=== PATIENT | female | born 1990 | race Caucasian/White ===

== ENCOUNTER 2022-05-19 13:43 | Inpatient (IN) | payer OTHER ==
--- NOTE | 2022-05-19 15:15 | P.HPOB ---
History of Present Illness H&P Date: 05/19/22 Chief Complaint: My water broke at 1:30 this afternoon This is a 31-year-old female 1 para 0 EDC 05/24/2022 at 39-3/7 weeks' gestation. Patient states her water broke at home, spontaneously, clear fluid, at 1:30 PM. She is having mild irregular uterine contractions. Fetus been active throughout the . history significant for blood type O+, rubella status nonimmune. Hepatitis B surface antigen, Pap smear, gonorrhea and chlamydia cultures, HIV testing, hepatitis B surface antigen, group B strep cultures all negative. One- hour Glucola 142, three-hour GTT within normal limits. Past medical history is significant for maternal obesity, dysmenorrhea, and dyspareunia. Past surgical history is negative. Current medications vitamins daily, baby aspirin daily, Zofran as needed. ALLERGIES none known. Family history significant for squamous cell carcinoma, bladder cancer, lung cancer, prostate cancer, blood clots. Social history patient is , 's name is Gio. 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 She denies alcohol tobacco or drug use. On exam patient is 5 foot, 230 pounds, vital signs are stable and she is afebrile. The general physical exam is within normal limits. Cervix is 3 cm dilated, 80% effaced, vertex presentation, -2 station, obviously ruptured membranes, clear fluid. heart rate is consistent with reactive NST. Impression: 39-3/7 weeks intrauterine , spontaneous amniorrhexis, all signs otherwise reassuring. Plan: Maternal and surveillance. Consider oxytocin pending progress. Analgesic options of been reviewed with the patient. Anticipate normal spontaneous vaginal delivery. Review of Systems Constitutional: Reports as per HPI Exam See dictation under HPI please Assessment and Plan Assessment: 39-3/7 weeks intrauterine , spontaneous amniorrhexis. All signs reassuring. Negative group strep cultures noted. Plan: Close maternal and surveillance. Consider oxytocin augmentation. Analgesic options reviewed. Anticipate normal spontaneous vaginal delivery. Time with Patient: Less than 30
[2022-05-19] MEDS: LACTATED RINGERS 1,000 ML IV SCH ×3 (15:30→17:36)
[2022-05-19 16:18] LABS: Basophils % (A) 0 %; Eosinophils # (A) 0.1 k/uL (0-0.7); Eosinophils % (A) 1 %; HCT 38.8 % (34.0-46.0); HGB 12.9 gm/dL (11.4-16.0); Lymphocytes # (A) 1.5 k/uL (1.0-4.8); Lymphocytes % (A) 13 %; MCH 28.4 pg (25.0-35.0); MCHC 33.1 g/dL (31.0-37.0); MCV 85.7 fL (80.0-100.0); Mean Platelet Volume 9.8; Monocytes # (A) 0.9 k/uL (0-1.0); Monocytes % (A) 7 %; Neutrophils # (A) 9.2 k/uL (1.3-7.7); Neutrophils % (A) 77 %; Platelet Count 220 k/uL (150-450); RBC 4.53 m/uL (3.80-5.40); RDW 13.8 % (11.5-15.5)
[2022-05-19] MEDS ORDERED: METHYLERGONOVINE 0.2 MG/ML 1 ML AMP IM PRN (16:20)
[2022-05-19] MEDS ORDERED: miSOPROStoL 200 MCG TAB PO PRN (16:20)
[2022-05-19] MEDS ORDERED: LIDOCAINE 0.5% (PF) 5 MG/ML (50 ML SDV) SQ PRN (16:20)
[2022-05-19] MEDS ORDERED: TERBUTALINE 1 MG/ML VIAL SQ PRN (16:20)
[2022-05-19] MEDS ORDERED: CARBOPROST TROMETHAMINE 250 MCG/ML 1 ML AMP IM PRN (16:20)
[2022-05-19] MEDS ORDERED: TRANEXAMIC ACID IN NACL,ISO-OS 1,000 MG in EMPTY BAG 1 BAG IV PRN (16:20)
[2022-05-19] MEDS ORDERED: OXYTOCIN 10 UNIT/ML 1 ML VIAL IM PRN (16:20)
[2022-05-19 16:32] LABS: ALT 13 U/L (4-34); AST 19 U/L (14-36); African American GFR (CKD) >90 (>60 ml/min/1.73 sqM); Blood Urea Nitrogen 6 mg/dL (7-17); LDH 178 U/L (120-246); Non-African American GFR(CKD) >90 (>60 ml/min/1.73 sqM); Uric Acid 4.3 mg/dL (3.7-7.4)
[2022-05-19] MEDS ORDERED: ROPIVACAINE 5 MG/ML 20 ML AMPULE ONE (16:32)
[2022-05-19] MEDS ORDERED: ePHEDrine 50 MG/ML 1 ML VIAL ONE (16:32)
[2022-05-19] MEDS ORDERED: SODIUM CHLORIDE 0.9% 100 ML BAG ONE ×2 (16:32→20:24)
[2022-05-19] MEDS ORDERED: fentaNYL (PF) 50 MCG/ML 5 ML AMP ONE (16:32)
[2022-05-19] MEDS: OXYTOCIN 30 UNITS/500 ML NS 30 UNIT in SALINE 1 500ML.BAG IV SCH ×2 (16:51→22:43)
[2022-05-19] MEDS ORDERED: ROPIVACAINE 100 MG, fentaNYL (PF). 200 MCG in SODIUM CHLORIDE 0.9% 76 ML EPIDURAL ONE (17:10)
[2022-05-19] MEDS ORDERED: CITRIC ACID-SODIUM CITRATE 15 ML CUP PO ONE (20:10)
[2022-05-19] MEDS ORDERED: LIDOCAINE HCL/PF 20 MG/ML 10 ML AMP ONE (20:24)
[2022-05-19] MEDS ORDERED: NALBUPHINE 10 MG/ML (10 ML MDV) ONE (20:24)
[2022-05-19] MEDS ORDERED: OXYTOCIN 30 UNITS/500 ML NS BAG IV ONE (20:24)
[2022-05-19] MEDS ORDERED: ceFAZolin 1,000 MG VIAL ONE (20:24)
[2022-05-19] MEDS ORDERED: KETOROLAC 15 MG/ML 1 ML VIAL ONE (20:24)
[2022-05-19] MEDS ORDERED: ONDANSETRON 4 MG/2 ML VIAL ONE (20:24)
[2022-05-19] MEDS ORDERED: MORPHINE SULFATE (PF) 0.3 MG/0.3 ML SYR ONE (20:24)
[2022-05-19] MEDS ORDERED: PHENYLEPHRINE-0.9% NACL SYG 1,000 MCG/10 ML SYRINGE ONE (20:24)
[2022-05-19] MEDS ORDERED: SIMETHICONE 80 MG CHEWABLE PO PRN (21:15)
[2022-05-19] MEDS ORDERED: ONDANSETRON 4 MG/2 ML VIAL IVP PRN (21:15)
[2022-05-19] MEDS ORDERED: diphenhydrAMINE 50 MG CAP PO PRN (21:15)
[2022-05-19] MEDS ORDERED: NALOXONE 0.4 MG/ML 1 ML VIAL IV PRN (21:15)
[2022-05-19] MEDS ORDERED: diphenhydrAMINE 25 MG CAP PO PRN (21:15)
[2022-05-19] MEDS ORDERED: ZOLPIDEM 5 MG TAB PO PRN (21:15)
[2022-05-19] MEDS ORDERED: diphenhydrAMINE 50 MG/ML 1 ML VIAL IVP PRN ×2 (21:15)
[2022-05-19] MEDS ORDERED: METOCLOPRAMIDE 5 MG/ML 2 ML VIAL IVP PRN (21:15)
--- NOTE | 2022-05-19 21:15 | P.OP ---
Date of Procedure: 05/19/22 Preoperative Diagnosis: 39-2/7 weeks' gestation, arrest of dilatation and descent Postoperative Diagnosis: Same,, liveborn male infant, left occiput transverse Procedure(s) Performed: Primary low transverse section Anesthesia: epidural Surgeon: Moraima Sr [employer] Mechanic #1: [place] Estimated Blood Loss (ml): 288 IV fluids (ml): 1,000 Urine output (ml): 50 Pathology: none sent Condition: stable Disposition: PACU Indications for Procedure: Arrest of dilation at 4 cm for approximately 5 hours, suspect asynclitic presentation Operative Findings: Liveborn male infant, scores 8 and 9 at one and 5 minutes, left occiput transverse, 6 lbs. 4 oz., 2840 g Description of Procedure: Patient is brought to the operating suite where the epidural and this was topped off. She's placed in the dorsal supine position with left lateral uterine displacement. Antibiotics are given after she is prepped and draped in the usual sterile fashion. The appropriate timeout is performed. The analgesia is checked and noted to be adequate. A low transverse skin incision is made in this is carried down through the subcutaneous tissue to the fascia. Fascia is isolated, scored, extended bilaterally with curved Sanchez scissors. Peritoneum is next identified and incised, there is no bowel or bladder involvement. The bladder blade is placed over the dome of the bladder after the bladder is developed with Metzenbaum scissors. A low transverse uterine incision is made in this is carried down through the myometrium. It is extended with blunt dissection. The infant's head is delivered in the left occiput transverse position. There is no nuchal cord noted. The oropharynx, nasopharynx, and external nares were all bulb suctioned on the perineal body. Patient is officially delivered of a liveborn male at 2039 hours. Umbilical cord is doubly clamped and ligated, he is handed to waiting nurses for evaluation where scores of 8 and 9 at one and 5 minutes respectively are given. Placentas delivered manually, it is inspected and noted to be intact with trivascular cord at 2039 hours. Uterus is then externalized and swept clean with a sterile sponge to avoid any retained products of conception. Oxytocin is given. Uterus is closed in a two-step fashion using 0 Vicryl suture, first layer running locking, second layer imbricated for excellent reapproximation. Bilateral tubes and ovaries appear normal. Abdomen is suctioned with suction on guard posterior to the uterus. Uterus is gently placed back into the abdominal cavity. Bilateral gutters are inspected and cleaned. Peritoneum was allowed to close by secondary intention. Fascia is closed in a running stitch of 0 Vicryl with over ligation in the midline. Subcutaneous tissue is irrigated, clean and dry. It is reapproximated with 3-0 undyed Vicryl in a running stitch. 4-0 undyed Monocryl is used for final skin closure. Steri-Strips and Mastisol are applied to the wound. Dressing is applied. Uterus is massaged. All sponge needle and enhancement counts are correct. Ryan is noted to be draining clear urine. Patient is brought back to the recovery room in excellent condition with stable vital signs including blood pressure 110/50, pulse 100. Patient is requesting circumcision for her infant son.
[2022-05-20] MEDS: ACETAMINOPHEN TAB 500 MG TAB PO SCH ×5 (00:59→22:37)
[2022-05-20] MEDS: IBUPROFEN 600 MG TAB PO SCH ×4 (05:21→21:54)
--- NOTE | 2022-05-20 06:01 | P.PN ---
Progress Note - Text Progress Note Date: 05/20/22 Postoperative day 1 status post section under epidural anesthesia and epidural Duramorph for postoperative analgesia.The patient is doing well, there is mild generalized skin itching. There are no other anesthesia related complications. The patient denies any paresthesia or weakness in the lower extremities. Patient denies any headache. Further management as per the patient primary team.
[2022-05-20 07:31] LABS: Basophils % (A) 0 %; Eosinophils # (A) 0.1 k/uL (0-0.7); Eosinophils % (A) 0 %; HCT 36.7 % (34.0-46.0); HGB 12.3 gm/dL (11.4-16.0); Lymphocytes # (A) 1.2 k/uL (1.0-4.8); Lymphocytes % (A) 9 %; MCH 28.8 pg (25.0-35.0); MCHC 33.5 g/dL (31.0-37.0); MCV 86.1 fL (80.0-100.0); Mean Platelet Volume 9.7; Monocytes # (A) 0.9 k/uL (0-1.0); Monocytes % (A) 7 %; Neutrophils # (A) 11.2 k/uL (1.3-7.7); Neutrophils % (A) 83 %; Platelet Count 216 k/uL (150-450); RBC 4.26 m/uL (3.80-5.40); RDW 14.1 % (11.5-15.5); WBC 13.6 k/uL (3.8-10.6)
[2022-05-20] MEDS: LACTATED RINGERS 1,000 ML IV SCH ×3 (07:34→15:59)
[2022-05-20 07:39] LABS: INR 0.9 (<1.2); Partial Thromboplastin Time 23.2 sec (22.0-30.0); Prothrombin Time 9.7 sec (9.0-12.0)
--- NOTE | 2022-05-20 07:59 | P.PN ---
Subjective Progress Note Date: 05/20/22 Principal diagnosis: Doing well postoperative day #1 Positive flatus. Minimal pain. No complaints. Objective - Vital Signs Vital signs: Vital Signs Temp 98.2 F 05/20/22 04:00 Pulse 109 H 05/20/22 04:00 Resp 16 05/20/22 04:00 BP 109/70 05/20/22 04:00 Pulse Ox 96 05/20/22 04:00 FiO2 Intake & Output 05/19/22 05/20/22 05/20/22 18:59 06:59 18:59 Intake Total 11.733 Output Total 1188 Balance -1176.267 Weight 102.512 kg Intake: Intake, IV Titration 11.733 Amount Oxytocin 30 Units/500 ml 11.733 Ns 30 unit In Saline 1 500ml.bag @ Per Protocol IV .Q0M [facility] Rx#:[id number] Output: Urine 800 Uretheral (Ryan) 400 Estimated Blood Loss 288 Output, Quantitative 100 Blood Loss Other: Voiding Method Indwelling Catheter # Voids 0 - Constitutional General appearance: Present: morbidly obese - EENT Eyes: Present: PERRLA ENT: Present: hearing grossly normal - Respiratory Respiratory: bilateral: CTA - Cardiovascular Rhythm: regular - Gastrointestinal Gastrointestinal Comment(s): Incision clean and dry, intact, Steri-Strips applied. Fundus firm, midline, symmetric, 18 week size. General gastrointestinal: Present: normal bowel sounds - Integumentary Integumentary: Present: normal - Neurologic Neurologic: Present: CNII-XII intact - Musculoskeletal Musculoskeletal: Present: gait normal, strength equal bilaterally - Psychiatric Psychiatric: Present: A&O x's 3, appropriate affect, intact judgment & insight - Labs CBC & Chem 7: 05/20/22 06:50 05/19/22 16:00 Labs: Abnormal Lab Results - Last 24 Hours (Table) 05/19/22 05/19/22 05/20/22 Range/Units 16:00 16:00 06:50 WBC 12.0 H 13.6 H (3.8-10.6) k/uL Neutrophils # 9.2 H 11.2 H (1.3-7.7) k/uL BUN 6 L (7-17) mg/dL Assessment and Plan Assessment: Doing well postoperative day #1 Plan: Advance diet and activity. Circumcision now. Likely discharge home tomorrow. Time with Patient: Less than 30
[2022-05-20] MEDS ORDERED: MEASLES-MUMPS-RUBELLA VACC/PF 12,500 UNIT/0.5 ML VIAL SQ ONE (08:08)
[2022-05-20] MEDS: SENNOSIDES-DOCUSATE SODIUM 1 EACH TAB PO SCH ×2 (10:04→19:34)
[2022-05-21] MEDS: IBUPROFEN 600 MG TAB PO SCH ×2 (01:30→08:06)
[2022-05-21] MEDS: ACETAMINOPHEN TAB 500 MG TAB PO SCH ×2 (04:35→12:43)
[2022-05-21] MEDS: SENNOSIDES-DOCUSATE SODIUM 1 EACH TAB PO SCH (08:06)
--- NOTE | 2022-05-21 09:06 | P.DS ---
Providers Date of admission: 05/19/22 14:26 Expected date of discharge: 05/21/22 Attending physician: Moraima Sr Primary care physician: Stated None Hospital Course: This is a 31-year-old female 1 para 0 EDC 05/24/2022 at 39-2/7 weeks' gestation. Patient presented from home with spontaneous amniorrhexis which occurred at 1:30 in the afternoon, clear fluid. Blood type is O+, rubella status nonimmune, group B strep cultures negative. Please see dictated history and physical for details. Patient received oxytocin augmentation, epidural was placed per her request. Over the course of 3-4 hours, no cervical dilatation was noted. In addition, asynclitic presentation was suspected. Patient was thoroughly counseled and decision was made to proceed with primary low transverse section. She gave to a liveborn male infant with scores of 8 and 9 at one and 5 minutes respectively via low transverse section. Estimated blood loss 288 mL's. was found in the left occiput transverse position, he weighed 2840 g or 6 lbs. 4 oz. Please see dictated operative note for details. This morning the patient is doing well. She is voiding, ambulating, passing flatus without difficulty. Vital signs are stable and she is afebrile. Her son has been circumcised. Her incision is clean and dry, intact, Steri-Strips applied. Patient is judged to be in very good condition for discharge home. She will follow-up with me in the office in 2 weeks for incision check. Steri- Strips are to stay in situ. Continue vitamin daily. Call with any fevers shakes or chills, foul smelling or copious vaginal drainage, with any redness drainage or incisional issues. No heavy lifting, no intercourse. She will use over the counter Advil or Aleve as needed for pain. She has a breast pump and breast-feeding is going well at this time. [place] will follow- up in the office as per recommendations. Assessment: Doing well postoperative day number two Patient Condition at Discharge: Good Plan - Discharge Summary Discharge Rx Participant: No New Discharge Prescriptions: No Action No Known Home Medications Discharge Medication List No Known Home Medications 05/19/22 [History] Follow up Appointment(s)/Referral(s): Moraima Sr MD [STAFF PHYSICIAN] - 2 Weeks Discharge Disposition: HOME SELF-CARE
[2022-05-21 13:39] VITALS: BP 125/81; PULSE 96; RESP 18; TEMP 98.4
== END 2022-05-21 14:10 | disposition home or self-care (01) | DRG 788 ==
LOC: FBPOP 13:43 → 4FBP 14:26
PROVIDERS: ADMIT Obstetrics & Gynecology; ATTEND Obstetrics & Gynecology
PROC: 10D00Z1 Extraction of Products of Conception, Low, Open Approach (ICD-10-PCS; principal; 2022-05-20)
PROC: 4A0HXCZ Measurement of Products of Conception, Cardiac Rate, External Approach (ICD-10-PCS; 2022-05-20)
PROC: 3E033VJ Introduction of Other Hormone into Peripheral Vein, Percutaneous Approach (ICD-10-PCS; 2022-05-20)
DX: O32.4XX0 Maternal care for high head at term, not applicable or unspecified (principal); O42.92 Full-term premature rupture of membranes, unspecified as to length of time between rupture and onset of labor; O32.2XX0 Maternal care for transverse and oblique lie, not applicable or unspecified; O99.214 Obesity complicating childbirth; O62.0 Primary inadequate contractions; E66.01 Morbid (severe) obesity due to excess calories; Z37.0 Single live birth; Z3A.39 39 weeks gestation of pregnancy; Z79.82 Long term (current) use of aspirin
CPT/HCPCS: 82565; 83615; 84450; 84460; 84520; 84550; 85025; 85610; 85730; 86850; 86900; 86901; 90707

== ENCOUNTER → 2024-06-08 | Outpatient (CLI) | payer OTHER ==
[2024-06-08 10:50] LABS: Basophils # (A) 0.05 X 10*3/uL (0.00-0.10); Basophils % (A) 0.8 %; Eosinophils # (A) 0.17 X 10*3/uL (0.04-0.35); Eosinophils % (A) 2.7 %; HCT 42.5 % (37.2-46.3); HGB 13.8 g/dL (12.0-15.0); Lymphocytes # (A) 1.73 X 10*3/uL (0.90-5.00); Lymphocytes % (A) 27.7 %; MCH 27.8 pg (27.0-32.0); MCHC 32.5 g/dL (32.0-37.0); MCV 85.7 FL (80.0-97.0); Mean Platelet Volume 11.3 FL (9.5-12.2); Monocytes # (A) 0.65 X 10*3/uL (0.20-1.00); Monocytes % (A) 10.4 %; NRBC Per 100 WBC 0 X 10*3/uL (0.00-0.01); Neutrophils # (A) 3.63 X 10*3/uL (1.80-7.70); Neutrophils % (A) 58.2 %; Platelet Count 179 X 10*3/uL (140-440); RBC 4.96 X 10*6/uL (4.10-5.20); RDW 12.8 % (11.5-14.5); WBC 6.24 X 10*3/uL (4.50-10.00)
[2024-06-08 11:40] LABS: ALT 15 U/L (8-44); AST 19 U/L (13-35); Albumin 3.9 g/dL (3.8-4.9); Alkaline Phosphatase 71 U/L (41-126); Blood Urea Nitrogen 12.8 mg/dL (9.0-27.0); Calcium 9.1 mg/dL (8.7-10.3); Carbon Dioxide 25.7 mmol/L (21.6-31.8); Chloride 105 mmol/L (96-109); Chol/HDL Ratio 2.85 Ratio; Ferritin 29.4 ng/mL (10.0-291.0); Globulin 2.3 g/dL (1.6-3.3); Glucose 107 mg/dL (70-110); LDL Cholesterol,Calculated 98.9 mg/dL (0.0-131.0); Potassium 4.1 mmol/L (3.5-5.5); Sodium 139 mmol/L (135-145); Total Bilirubin 0.5 mg/dL (0.3-1.2); Total Protein 6.2 g/dL (6.2-8.2); VLDL Calculation 16.02 mg/dL (5.00-40.00)
== END | disposition home or self-care (01) ==
LOC: LABWHC1 07:44
PROVIDERS: ATTEND Family Medicine
DX: Z13.220 Encounter for screening for lipoid disorders (principal); Z13.1 Encounter for screening for diabetes mellitus; E53.8 Deficiency of other specified B group vitamins; R79.0 Abnormal level of blood mineral
CPT/HCPCS: 36415; 80053; 80061; 82306; 82607; 82728; 82746; 83036; 84443; 85025